=== PATIENT | female | born 1985 | race Caucasian/White ===

== ENCOUNTER 2020-02-15 17:21 | Emergency (ER) | payer MEDICAID ==
[~2020-02-15] VITALS: Ht 167.6 cm; Wt 69.0 kg
[~2020-02-15 17:21] MED LIST: None per pt.
--- NOTE | 2020-02-15 18:00 | NUR ---
THIS IS A 34 YO FEMALE BIB [facility] FOR ALTEREED MENTAL STATUS AFTER IV METH AND HEROIN USE AND SMOKING METH AND MARIJUANA, HX SCHIZOPHRENIA. PATIENT DOES NOT ANSWER QUESTIONS A&OX0 AT THIS TIME, SPEAKING WORDS AT RANDOM. STAFF AT LONG TERM GAVE NARCAN INTRANASALLY FOR DILATED PUPILS, [facility] GAVE APPROX 250ML NS. PATIENT HAVING AUDITORY AND VISUAL HALLUCINATIONS PER EMS REPORT. MONITORING IN PLACE, VSS.
[2020-02-15 18:05] LABS: BASOPHILS % (AUTO) 1 % (0-1); EOSINOPHILS % (AUTO) 1 % (1-7); LYMPHOCYTES % (AUTO) 20 % (22-44); MEAN CORPUSCULAR HEMOGLOBIN 29.3 pg (27.0-34.8); MEAN CORPUSCULAR HGB CONC 33.3 g/dL (32.4-35.8); MEAN PLATELET VOLUME 8.5 fL (7.4-10.4); MONOCYTES % (AUTO) 10 % (2-9); NEUTROPHILS % (AUTO) 69 % (42-75); PLATELET COUNT 315 x10^3/uL (130-400); RED BLOOD COUNT 4.72 x10^6/uL (3.82-5.3)
[2020-02-15 18:08] LABS: MD NO
[2020-02-15 18:12] LABS: ALBUMIN 4.1 g/dL (3.4-5.0); ANION GAP 11 mmol/L (5-15); CALCIUM 8.7 mg/dL (8.5-10.1); CHLORIDE 105 mmol/L (98-107)
[2020-02-15 18:16] LABS: ALANINE AMINOTRANSFERASE 8 U/L (12-78); ALKALINE PHOSPHATASE 89 U/L (45-117); BILIRUBIN,TOTAL 1.1 mg/dL (0.2-1.0); CREATININE 0.55 mg/dL (0.55-1.02); SALICYLATE LEVEL < 1.7 mg/dL (2.8-20.0); TOTAL PROTEIN 7.7 g/dL (6.4-8.2)
--- NOTE | 2020-02-15 18:47 | NUR ---
UA/UDS COLLECTED AND SENT
[2020-02-15 19:11] LABS: AMPHETAMINE SCREEN, URINE Positive (Negative); BARBITURATE SCREEN, URINE Negative (Negative); BENZODIAZEPINE SCREEN, URINE Negative (Negative); CANNABINOID SCREEN, URINE Negative (Negative); COCAINE SCREEN, URINE Negative (Negative); METHADONE SCREEN, URINE Negative (Negative); MICROSCOPIC INDICATED; OPIATE SCREEN, URINE Negative (Negative)
--- NOTE | 2020-02-15 20:13 | NUR ---
REPORT RECIEVED FROM MYLA ALEXIS. PT PLACED IN ROOM WITH SECURITY DOORS DOWN FOR HER SAFETY, PT A/O X 0. ATTEMPTING TO GET SITTER
--- NOTE | 2020-02-15 20:13 | NUR ---
REPORT GIVEN TO LUCIA. PATIENT MOVED TO ROOM 2 FOR PATIENT SAFETY. ROOM SECURED, PATIENT IN [facility], MONITORING BACK IN PLACE.
--- NOTE | 2020-02-15 21:13 | NUR ---
PT RESTING IN BED, ABLE TO STATE HER NAME BUT STATED "I DONT KNOW" WHEN ASKED OTHER A/O QUESTIONS
--- NOTE | 2020-02-15 22:31 | NUR ---
PT GIVEN SANDWICH, OK PER ERP. WHEN HANDING PT FOOD, PT JUST STARED AT TECH HANDING FOOD TO HER AND WAS NOT RESPONDING.
--- NOTE | 2020-02-15 23:29 | NUR ---
PT URINATED ALL OVR HERSELF, PT CLEANED UP GIVEN NEW GOWN AND BEDDINGS. PT AMBULATED TO RESTROOM AND PT URINATED MORE. PT NEEDS PROMPTING WHEN CHANGING AND AMBULATING HER.
[2020-02-16 00:39] VITALS: BP 98/62
--- NOTE | 2020-02-16 00:51 | NUR ---
SPOKE WITH ERP, PT IS STILL CONFUSED AND UNABLE TO CARE FOR HERSELF. ERP STATES SHE WILL INITIATE LEGAL HOLD AND ORDER A HEAD CT. PT'S ROOM IS LOCKED DOWN AND BELONGINGS PLACED IN LOCKER.
--- NOTE | 2020-02-16 01:07 | NUR ---
1 BELONGINGS BAG PLACED IN SECURITY LOCKER
--- NOTE | 2020-02-16 01:47 | NUR ---
TASK RN: ERP IN TO DISCUSS POC, LEGAL HOLD. PATIENT DEMONSTRATES UNDERSTANDING. PT RESTING QUIETLY IN GURNEY. EVEN/REGULAR RESPIRATIONS NOTED. ROOM SECURE, SITTER PRESENT; NO PERSONAL BELONGINGS NOTED AT BEDSIDE.
--- NOTE | 2020-02-16 01:47 | NUR ---
THROUGHPUT RN: PACKET FAXED TO [facility] AT AT THIS TIME
--- NOTE | 2020-02-16 02:03 | NUR ---
THROUGHPUT RN: [facility] DOES NOT ACCEPT THE PT INSURANCE, PACKET FAXED TO OTHER [facility], [facility], [place]
--- NOTE | 2020-02-16 03:12 | NUR ---
SPOKE WITH MYLA SMITH FROM [facility]. PER RN, PT SOUNDS TOO ACUTELY ILL FOR THAT FACILITY BECAUSE OF PT'S NEED FOR PROMPTING TO DO ADL'S.
--- NOTE | 2020-02-16 03:47 | NUR ---
PT STILL RESTLESS IN BED, EASILY REDIRECTED BACK, IN LINE OF SIGHT OF SITTER
--- NOTE | 2020-02-16 04:35 | NUR ---
WILFRID FROM [facility] CALLED AND STATES THAT PT HAS BEEN ACCEPTED BY DR KING TO THEIR FACILITY. RN TO GIVE REPORT.
--- NOTE | 2020-02-16 04:43 | NUR ---
REPORT GIVEN TO MYLA YUEN. PT TO TRANSFER AT 0700
--- NOTE | 2020-02-16 04:56 | NUR ---
PT APPEARS TO BE RESTING IN BED COMFORTABLY, RESP EVEN/UNLABORED, IN LINE OF SIGHT OF SITTER
--- NOTE | 2020-02-16 06:18 | NUR ---
PT APPEARS TO BE SLEEPING COMFORTABLY, RESP EVEN/UNLABORED, IN LINE OF SIGHT OF SITTER
--- NOTE | 2020-02-16 06:52 | NUR ---
REPORT GIVEN TO MYLA PATTERSON
--- NOTE | 2020-02-16 07:16 | NUR ---
PT RESTING ON ED BED WITH EYES CLOSED. EVEN RISE AND FALL OF CHEST NOTED. PT ROOM SECURED AND PT IN FULL VIEW OF THE SITTER.
--- NOTE | 2020-02-16 08:50 | NUR ---
KELLY AT BEDSIDE TO TRANSFER PT TO [facility].
== END 2020-02-16 09:05 ==
LOC: ED 23:09
DX: F20.9 Schizophrenia, unspecified (principal); F15.250 Other stimulant dependence with stimulant-induced psychotic disorder with delusions; Z72.9 Problem related to lifestyle, unspecified; Z59.0 Homelessness; R94.31 Abnormal electrocardiogram [ECG] [EKG]
CPT/HCPCS: 36415; 70450; 80053; 80307; 81001; 85025; 87086; 93005; 99285